=== PATIENT | female | born 1965 | race Caucasian/White ===

== ENCOUNTER 2023-12-20 05:53 | Day surgery (SDC) | payer OTHER ==
[2023-12-20] MEDS: CEFAZOLIN 2 GM/100 ML NaCl 2 GM/100 ML IVPB IV SCH (06:09)
[2023-12-20] MEDS: Lactated Ringers 1,000 ML IV SCH (06:09)
[2023-12-20 06:16] VITALS: PULSE 77; RESP 18
[2023-12-20 06:19] LABS: Hematocrit 40.7 % (34.1-44.9); Mean Cell Volume 88.7 fL (79.4-94.8); Mean Corpuscular Hemoglobin 28.3 pg (25.6-32.2); Mean Corpuscular Hgb Concent. 31.9 g/dL (32.2-35.5); Mean Platelet Volume 10.4 fL (9.4-12.3); Platelet Count 196 x10^3/uL (182-369); Red Blood Count 4.59 x10^6/uL (3.93-5.22); Red Cell Distribution Width 14.3 % (11.7-14.4)
[2023-12-20 06:28] LABS: ALBUMIN 4.6 g/dL (3.5-5.0); BILIRUBIN,TOTAL 0.5 mg/dL (0.2-1.3); Calcium 9.7 mg/dL (8.4-10.2); Creatinine 1 0.83 mg/dL (0.52-1.04); EST GLOMERULAR FILTRATION RATE 81.7 ML/MIN; Potassium 4.3 mmol/L (3.5-5.1)
[2023-12-20] MEDS ORDERED: DIPRIVAN 200 MG/20 ML IV ONE (07:01)
[2023-12-20] MEDS ORDERED: PHENYLEPHRINE HCL ONE (07:02)
[2023-12-20] MEDS ORDERED: EXPAREL 133 MG/10 ML VIAL IJ ONE (07:03)
[2023-12-20] MEDS ORDERED: Versed 2 MG/2 ML Injection ONE ×2 (07:07→07:16)
[2023-12-20] MEDS ORDERED: ROCURONIUM BROMIDE IV ONE (07:47)
[2023-12-20] MEDS ORDERED: SUBLIMAZE 100 MCG/2 ML ONE (07:47)
[2023-12-20] MEDS ORDERED: Decadron 4 MG INJ ONE (07:47)
[2023-12-20] MEDS ORDERED: Xylocaine-Mpf 2% 5 Ml Vial ONE (07:53)
[2023-12-20] MEDS ORDERED: Transderm Scop 1.5MG Patch ONE (08:20)
[2023-12-20] MEDS ORDERED: Epinephrine Preservative Free 1 MG/ML ONE (08:30)
[2023-12-20] MEDS ORDERED: Ephedrine Sulfate 50 MG/ML ONE (08:45)
[2023-12-20] MEDS ORDERED: BRIDION 200MG/2ML IV ONE (09:49)
--- NOTE | 2023-12-20 10:23 | XRAY ---
Indication: Right ankle arthroscopy with synovectomy and microfracture. Partial excision fibula. Lateral ankle stabilization. Bone biopsy tibia. Intraoperative fluoroscopy provided for 51 seconds. Numerous digital spot and cine images submitted for interpretation demonstrates metallic localizer tip lateral to talus, instrumentation lateral malleolus, and additional metallic localizer tip anterior to proximal tibia. Correlate with intraoperative findings/report.
[2023-12-20] MEDS ORDERED: Marcaine 0.5%/Epinephrine 10 ML ONE (10:42)
--- NOTE | 2023-12-20 11:01 | XRAY ---
51 seconds of fluoroscopy was used in surgery for a right ankle arthroscopy with synovectomy and microfracture. Partial excision fibula. Lateral ankle stabilization. Bone biopsy tibia.
[2023-12-20 11:15] VITALS: BP 144/78; TEMP 97.5; O2SAT 92
--- NOTE | 2023-12-22 11:45 | OP ---
SURGERY DATE/TIME: 12/20/2023 [id number] PREOPERATIVE DIAGNOSES: 1) Ankle joint effusion, right. 2) Ankle joint pain. 3) Ankle joint synovitis. 4) Osteochondral defect. 5) Lateral ankle instability. 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 7) Multiple myeloma. 8) Difficulty with ambulation. POSTOPERATIVE DIAGNOSES: 1) Ankle joint effusion, right. 2) Ankle joint pain. 3) Ankle joint synovitis. 4) Osteochondral defect. 5) Lateral ankle instability. 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 7) Multiple myeloma. 8) Difficulty with ambulation. PROCEDURE: 1) Ankle arthroscopy with synovectomy, right ankle. 2) Ankle arthroscopic microfracture osteochondral lesion, talar dome x2. 3) Excision of fibular nonunion, right ankle. 4) Lateral ankle stabilization, ATFL and CFL ligaments. 5) Bone marrow aspiration/biopsy proximal tibia, right leg. SURGEON: Dwain Chavez DPM CIRCULATION DIRECTOR: None. ANESTHESIA: General plus a preoperative popliteal and saphenous block. See anesthesia report for details. HEMOSTASIS: Thigh tourniquet set to 300 mmHg for a total of 53 total tourniquet minutes. ESTIMATED BLOOD LOSS: Approximately 5 mL. MATERIALS: A 2.9 JuggerKnot with broadband to a 2.9 Betta Link and two 1.45 JuggerKnot, 2-0 Vicryl, 3-0 nylon, 4-0 Monocryl. INJECTABLES: See anesthesia report for details. INDICATIONS: The patient is a very pleasant 58-year-old female who is known to my service for pain to the right ankle. The patient has had an extensive history of issues with this ankle as a result of an ankle inversion injury to the right ankle resulting in an avulsion of the tip of the fibula. The patient was in a CAM boot for 9 months and allowed to weight bear with a nonunion that occurred with another provider. The patient presents with continued pain at least on initial consultation. She had failed all routes of treatment from that standpoint. Given her failure with conservative treatment, she opted to go the route of surgical intervention. The patient has been made aware of all risks, complications, and benefits of surgical intervention at this time including, but not limited to, infection, hematoma, seroma, possibility of delayed wound healing, non-wound healing, possibility of continued pain, possibility of continued instability, possible need for further surgical intervention at a later date, and possible removal of painful hardware. She understands all these risks and wishes to proceed. Plenty of time was allowed for the patient to ask questions which were answered to her apparent satisfaction. No guarantees were provided as to the outcome of surgical intervention. At this time, we decided to proceed. DESCRIPTION OF PROCEDURE AND FINDINGS: The patient was brought into the postoperative anesthesia care unit prior to the procedure and provided a popliteal and saphenous block to the right lower extremity. See anesthesia report for details. At this time, the patient was then brought into the operating room and placed on the operating room table in the supine position. General anesthesia was administered until the patient was adequately sedated. A well-padded tourniquet was applied to the patient's right thigh and the tourniquet was set to 300 mmHg. At this time, the right lower extremity was then prepped and draped in the typical sterile fashion and lowered onto the surgical field. From that standpoint, attention was directed to the medial and lateral malleolus which were outlined at their palpable end points. The palpable dell between the talus and the tibia was identified, finding the midline of the ankle joint. Skin marker was utilized to draw lines corresponding to these landmarks, and an anteromedial portal was deemed appropriate just medial to the tibialis anterior tendon and anterolateral was just above this line, making sure not to damage the superficial peroneal nerve at the anterolateral aspect of the ankle joint capsule. An 18-gauge needle with a 50 mL syringe with lactated Ringer's was introduced in the anteromedial portal and insufflated the ankle with approximately 30 mL of fluid. The foot dorsiflexing relative to the ankle, knowing that we were intracapsular, an 11-blade was then utilized to make an incision to the level of skin and then a curved mini hemostat was utilized to penetrate the capsule and insufflation fluid was expressed. A blunt obturator and trocar were introduced. The obturator was then removed and the 30-degree 4.0 mm camera was then introduced. Inspection of the joint showed a significant amount of hemorrhagic and crab meat synovitis at the anterior medial and lateral aspects of the joint immediately. The lateral portal was then established utilizing an 11 blade and a curved mini hemostat, and then the 3.4 mm shaver was then introduced, debriding any synovitis that was encountered. Significant amount of constrictors was identified at the anterior aspect of the ankle joint. These were cut utilizing a cutter, and some rongeurs were utilized to remove these constrictors. The anterior aspect of the tibia was debrided utilizing a shaver. There was significant amount of constrictors. Bovie was utilized to burn the surface of these hemorrhagic areas and stop any bleeding within the joint. From that standpoint, the portals were exchanged and an extensive synovectomy was performed at the medial and lateral gutters, removing any constrictors at which the anterior aspect of the ankle joint as well as the top of the talar dome had a significant amount. From that standpoint, attention was directed to the medial talar dome where on MRI, there was approximately a 6 mm x 8 mm osteochondral defect with fairly superficial depth. This area was assessed and probed. The cartilage was very weak in this area with a delaminated section posteriorly lifting and exposing the subchondral plate. This area was then shaved utilizing a 2.7 mm shaver. A chondral pick was then utilized to microfracture the surface of the talar dome. Another area of interest was identified centrally and anteriorly. This area looks as though it had some fibrocartilaginous growth but there was some exposure of the subchondral plate centrally and decision was made to proceed with a microfracture in this location. Healthy bleeding was seen after the microfracture. From that standpoint, the shaver was then utilized to debride these areas once more until the cartilage was smooth on all surfaces. Final pictures were taken inside the joint and then the arthroscopic portion of the procedure was removed from the field. At this time, an Esmarch was utilized to exsanguinate the leg and the tourniquet was inflated to 300 mmHg. At this time, a linear incision was carried down from the tip of the anterior process of the calcaneus to the midline of the fibula. Once past the adipose layer, careful dissection was carried down utilizing a combination of dissection scissors and blunt and sharp dissection, making sure not to damage any neurovascular structures along the way. Superficial peroneal nerve was encountered and retracted out of the way dorsally. The area of the distal tip of the fibula was encountered and the nonunion was identified. The nonunion was then resected utilizing a 15-blade and a pair of rongeurs and handed off the field. The calcaneofibular ligament was tested prior to this with a talar tilt, deeming this to be inadequate, as well as an anterior drawer which demonstrated a significant amount of displacement relative to the longitudinal access of the leg on a lateral view. Decision was made to do a double ligament repair with InternalBrace. At this time, the 2.9 JuggerKnot was introduced into the lateral body at the junction of the body and the neck of the talus, making sure on AP and lateral views that the drill was not in the intraarticular space. Once drilled, the 2.9 JuggerKnot was then placed. Good hold of the suture was appreciated at this time. This was then anchored with the foot in a dorsiflexed position to the 2.9 Betta Link and the footprint of the ATFL off the distal aspect of the fibula. Periosteum was elevated at this time in order to have ligament to bone contact. From that standpoint, two 1.45 JuggerKnots were then introduced at the tip of the distal fibula for repair of the calcaneofibular ligament and then 1 just proximal to the InternalBrace where the ATFL was to be repaired. The repair took place a Brostrom-type procedure, gaining excellent apposition and shortening of the ATFL and CFL ligaments. From that standpoint, talar tilt and anterior drawer were performed once again with complete elimination of the talar tilt and significant improvement in the anterior drawer maneuver. From that standpoint, copious amounts of sterile saline were utilized to flush the surgical site, 2-0 Vicryl was utilized to repair the capsule of the ankle joint laterally and then from that standpoint a 4-0 Monocryl was utilized to coapt the subcutaneous skin edges in a simple interrupted buried-type fashion over the lateral ankle stabilization site. All other sites had horizontal mattress sutures with 3-0 nylon to coapt the skin edges in everted-type fashion. Following this, a Jamshidi needle with a trocar was utilized to perform the bone marrow aspiration at the proximal aspect of the medial tibial face within our safe zone. A stab incision was made which was carried down to the level of the medial tibial face, utilizing a curved mini hemostat. Utilizing a mallet and a Jamshidi needle, the Jamshidi needle was introduced into the bone marrow and aspiration of approximately 5 mL was obtained. This was handed off the field for pathological assessment. From that standpoint, this area was then cleansed and a 3-0 nylon was utilized to coapt the skin edges in a simple interrupted-type fashion. Following this, the tourniquet was let down. Dressings were applied consisting of Betadine, Adaptic, 4 x 4, Kerlix, and a well-padded posterior splint with sugar tong. From that standpoint, the patient was then reversed from anesthesia and returned to the postoperative anesthesia care unit with vital signs stable and vascular status intact. The patient handled the anesthesia as well as the procedure without significant complication. Postoperative orders as indicated in the patient's discharge chart.
== END 2023-12-20 11:41 | disposition home or self-care (01) ==
LOC: SDC 05:53
PROVIDERS: ATTEND Podiatrist Foot & Ankle Surgery
DX: M25.471 Effusion, right ankle (principal); M25.571 Pain in right ankle and joints of right foot; M65.871 Other synovitis and tenosynovitis, right ankle and foot; M93.271 Osteochondritis dissecans, right ankle and joints of right foot; S93.411A Sprain of calcaneofibular ligament of right ankle, initial encounter; M25.371 Other instability, right ankle; R26.2 Difficulty in walking, not elsewhere classified; S82.401A Unspecified fracture of shaft of right fibula, initial encounter for closed fracture; C90.00 Multiple myeloma not having achieved remission
CPT/HCPCS: 27641; 27698; 29892; 29898; 36415; 38221; 73610; 76000; 80053; 85027; 93005; C1713; J0171; J0690; J1100; J2250; J2371; J2704; J3010; A9270-GY

== ENCOUNTER 2024-02-26 18:54 | Emergency (ER) | payer OTHER ==
[2024-02-26 19:13] VITALS: TEMP 97.4
[2024-02-26] MEDS ORDERED: DUONEB 0.5-3 MG/3 ml Neb IH ONE (19:35)
[2024-02-26] MEDS ORDERED: PROVENTIL 2.5 MG/3 ML NEB IH ONE (19:35)
--- NOTE | 2024-02-26 19:35 | ERPHSYRPT ---
- History of Present Illness Source: patient Exam Limitations: no limitations Patient Subjective Stated Complaint: pt began having a cough on Tuesday after grandchildren had been sick and sputum has changed from clear/white to brown, pt feels short of breath Triage Nursing Assessment: Pt brought to the ER by her daughter, hypertensive, rates head pain as 8/10, pulses normal, skin n/w/d, cough, diminshed lungs with crackles Physician History: Patient's had cough for about 4 days. She has not had any fever but had chills and rigors. She has had cough which is producing sputum. She said it was brown possibly had a little bit of blood streaks in it. She had a exposure to infectious disease by her grandchildren. This was about 2 weeks ago. Most of them have all gotten better but she still feeling sick. She has a history of asthma and says that she is having some difficulty breathing. She said she gets little bit dyspneic on exertion. She is maintaining good sats and in no respiratory distress here. She does not have any chest pain. Nothing really makes his symptoms better or worse. Allergies/Adverse Reactions: amlodipine Allergy (Verified 02/26/24 19:13) aspirin [From Percodan] Allergy (Verified 02/26/24 19:13) hydralazine Allergy (Verified 02/26/24 19:13) Iodinated Contrast Media Allergy (Verified 02/26/24 19:13) metoprolol Allergy (Verified 02/26/24 19:13) naproxen [From Naprosyn] Allergy (Verified 02/26/24 19:13) ondansetron [From Zofran] Allergy (Verified 02/26/24 19:13) oxycodone [From Percodan] Allergy (Verified 02/26/24 19:13) prednisone Allergy (Verified 02/26/24 19:13) silver sulfadiazine [From Silvadene] Allergy (Verified 02/26/24 19:13) vancomycin Allergy (Verified 02/26/24 19:13) Home Medications: L.acidoph,Paracasei, B.lactis [Probiotic] 1 each PO DAILY 11/28/23 [History] Lisinopril 10 mg [Zestril 10 MG] 10 mg PO DAILY 11/28/23 [History] Multivitamin [Multi-Vitamin Daily] 1 each PO DAILY 11/28/23 [History] Nebivolol HCl 2.5 mg PO DAILY 11/28/23 [History] Acetylcysteine [Nac] 500 mg PO DAILY 12/20/23 [History] Albuterol Sulfate/Budesonide [Airsupra 90-80 Mcg Inhaler] 1 puff IH DAILY 12/20/23 [History] Potassium Chloride 20 meq PO BID 02/26/24 [History] Hx Influenza Vaccination/Date Given: No Hx Pneumococcal Vaccination/Date Given: No Travel Risk - International Travel Have you traveled outside of the country in past 3 weeks: No - Emerging Infectious Disease Are you exhibiting symptoms associated with any current EIDs: Yes Symptoms: Cough: New Onset, Shortness of Breath - Review of Systems Constitutional: Chills, Fatigue, Lethargy, Malaise Eyes: No Symptoms Ears, Nose, & Throat: No Symptoms Respiratory: Cough, Dyspnea on Exertion (GOLD), Wheezing Cardiac: No Symptoms Abdominal/Gastrointestinal: No Symptoms, No Abdominal Pain, No Nausea, No Vomiting Musculoskeletal: No Symptoms Skin: No Symptoms All Other Systems: Reviewed and Negative - Past Medical History Pertinent Past Medical History: Yes Neurological History: Other ENT History: No Pertinent History Cardiac History: Hypertension, Other Respiratory History: Asthma Endocrine Medical History: Other Musculoskeletal History: Osteoarthritis GI Medical History: GERD History: Other Psycho-Social History: No Pertinent History Female Reproductive Disorders: No Pertinent History Other Medical History: KIDNEY STONES. SUPRAVENTRICULAR TACHYCARDIA WITH ANGINA, CARDIAC ABLATION. - Past Surgical History Past Surgical History: Yes Neuro Surgical History: No Pertinent History Cardiac: Other Respiratory: No Pertinent History Gastrointestinal: Cholecystectomy Genitourinary: No Pertinent History Musculoskeletal: Other Female Surgical History: Hysterectomy, Other Other Surgical History: bilateral breast surgery, hand surgery, bilateral foot surgery,sinus, lymph nodes removed from right groin and abcess developed-2023 - Social History Smoking Status: Former smoker Exposure to second hand smoke: No Drug Use: none - Social Determinants of Health Will the patient participate in the screening: Yes Do you worry about a steady place to live?: No Do you have any problems with any of the following?: No known problems In the past 12 months,have you had to go without utilities?: No Transportation Issues: No Has anyone in your support network made you feel unsafe?: No Have you or anyone in your house had to go without enough: No - Nursing Vital Signs Nursing Vital Signs: Initial Vital Signs Temperature 97.4 F 02/26/24 19:03 Pulse Rate 84 02/26/24 19:03 Blood Pressure 169/103 02/26/24 19:03 O2 Sat by Pulse Oximetry 98 02/26/24 19:03 Pain Scale Pain Intensity 8 - Physical Exam General Appearance: no apparent distress Eye Exam: PERRL/EOMI Neck Exam: normal inspection Respiratory Exam: diminished breath sounds, prolonged expirations, wheezing, No chest tenderness, No lungs clear, No respiratory distress, No accessory muscle use Cardiovascular Exam: regular rate/rhythm, normal heart sounds Back Exam: normal inspection Extremity Exam: normal inspection, normal range of motion, No pelvis stable, No amputations Neurologic Exam: alert, oriented x 3 SpO2: 98 - Course Nursing assessment & vital signs reviewed: Yes Ordered Tests: Active Orders 24 hr Category Date Time Status CHEST 1 VIEW (PORTABLE) Stat Exams 02/26/24 19:19 Taken CBC W DIFF Stat Lab 02/26/24 19:49 Completed CMP Stat Lab 02/26/24 19:49 Completed Respiratory Therapy Assessment DAILY RT 02/26/24 19:44 Active Medication Summary Discontinued Medications Generic Name Dose Route Start Last Admin Trade Name Freq PRN Reason Stop Dose Admin Albuterol Sulfate 2.5 mg 02/26/24 19:31 02/26/24 19:43 Albuterol Sulfate 2.5 Mg/3 Ml Neb IH 02/26/24 19:32 2.5 mg STAT ONE Administration Albuterol Sulfate Confirm 02/26/24 19:35 Albuterol Sulfate 2.5 Mg/3 Ml Neb Administered 02/26/24 19:36 Dose 2.5 mg IH .STK-MED ONE Albuterol/Ipratropium 3 ml 02/26/24 19:32 02/26/24 19:43 Ipratropium/Albuterol Sulfate 3 Ml Ampul.Neb IH 02/26/24 19:33 3 ml STAT ONE Administration Albuterol/Ipratropium Confirm 02/26/24 19:35 Ipratropium/Albuterol Sulfate 3 Ml Ampul.Neb Administered 02/26/24 19:36 Dose 3 ml IH .STK-MED ONE Patient improved fairly dramatically with her albuterol treatments. Her chest x-ray showed a right infiltrate. I went to go ahead and treat her for pneumonia. Lab/Rad Data: Laboratory Result Diagrams 02/26/24 19:49 02/26/24 19:49 Laboratory Results 02/26/24 02/26/24 02/26/24 Range/Units 19:49 19:49 19:35 WBC 4.1 (3.98-10.04) x10^3/uL RBC 3.96 (3.93-5.22) x10^6/uL Hgb 11.4 (11.2-15.7) g/dL Hct 34.7 (34.1-44.9) % MCV 87.6 (79.4-94.8) fL MCH 28.8 (25.6-32.2) pg MCHC 32.9 (32.2-35.5) g/dL RDW 13.8 (11.7-14.4) % Plt Count 123 L (182-369) x10^3/uL MPV 9.7 (9.4-12.3) fL Gran % 72.2 H (34.0-71.1) % Immature Gran % (Auto) 0.2 (0.001-0.429) % Nucleat RBC Rel Count 0.0 (0.00-0.2) % Eos # (Auto) 0.10 (0.04-0.36) x10^3/uL Immature Gran # (Auto) 0.01 (0.001-0.031) x10^3u/L Absolute Lymphs (auto) 0.65 L (1.18-3.74) x10^3/uL Absolute Monos (auto) 0.36 (0.24-0.86) x10^3/uL Absolute Nucleated RBC 0.00 (0.00-0.012) x10^3u/L Lymphocytes % 16.0 L (19.3-51.7) % Monocytes % 8.9 (4.7-12.5) % Eosinophils % 2.5 (0.7-5.8) % Basophils % 0.2 (0.1-1.2) % Absolute Granulocytes 2.93 (1.56-6.13) x10^3/uL Basophils # 0.01 (0.01-0.08) x10^3/uL Sodium 142 (135-145) mmol/L Potassium 3.6 (3.5-5.1) mmol/L Chloride 109 H (98-107) mmol/L Carbon Dioxide 25 (22-30) mmol/L Anion Gap 12.0 (5-15) MEQ/L BUN 14 (7-17) mg/dL Creatinine 0.88 (0.52-1.04) mg/dL Estimated GFR 76.1 ML/MIN Glucose 107 H (74-106) mg/dL Calcium 9.2 (8.4-10.2) mg/dL Total Bilirubin 0.30 (0.2-1.3) mg/dL AST 33 (14-36) U/L ALT 36 H (0-35) U/L Alkaline Phosphatase 103 (38-126) U/L Serum Total Protein 7.1 (6.3-8.2) g/dL Albumin 4.1 (3.5-5.0) g/dL Influenza Type A Ag NEGATIVE (NEGATIVE) Influenza Type B Ag NEGATIVE (NEGATIVE) RSV (PCR) NEGATIVE (NEGATIVE) SARS-CoV-2 (PCR) NEGATIVE (NEGATIVE) X-ray was interpreted by me. It looks like she has a right lung infiltrate. She was stable throughout stay. - Progress Progress: improved, re-examined Air Movement: good Progress Note: On the differential was pneumonia, COVID, flu, RSV, pleurisy. Her lab work all look good. Her x-ray was interpreted by me. It showed an infiltrate on the right lung. I think she may have pneumonia starting up. She clinically had symptoms of a pneumonia. She has multiple allergies to antibiotics. She says that Levaquin usually works for them so that is what we will use. I would give her some Tessalon Perles as well 2. She is discharged home in stable condition. She is to follow-up with primary care doctor and return if symptoms worsen 02/26/24 20:53 Antibiotics given: Yes Medical Desision Making - Social Determinants of Health Pt's dx & treatment plan are significantly limited by SDOH: limited education - Diagnostic Testing Diagnostic test were ordered, analyzed, and reviewed by me: Yes Radiological Interpretation: Interpreted by me - Risk of complications Minimal Risk: Minimal risk of morbidity - Departure Departure Disposition: Home Clinical Impression: Pneumonia Condition: Stable Critical Care Time: No Referrals: WILFREDO ROCHA MD [Primary Care Provider] - Follow up/PCP as directed Instructions: Pneumonia in adults
[2024-02-26] MEDS: DUONEB 0.5-3 MG/3 ml Neb IH ONE (19:43)
[2024-02-26] MEDS: PROVENTIL 2.5 MG/3 ML NEB IH ONE (19:43)
[2024-02-26 19:50] LABS: Absolute Neutrophil Ct (ANC) 2.93 x10^3/uL (1.56-6.13); BASOPHIL % 0.2 % (0.1-1.2); Basophil (Absolute #) 0.01 x10^3/uL (0.01-0.08); Eosinophil % 2.5 % (0.7-5.8); Hematocrit 34.7 % (34.1-44.9); Hemoglobin 11.4 g/dL (11.2-15.7); IMMATURE GRAN # 0.01 x10^3u/L (0.001-0.031); IMMATURE GRAN % 0.2 % (0.001-0.429); Lymphocyte (Absolute #) 0.65 x10^3/uL (1.18-3.74); Mean Cell Volume 87.6 fL (79.4-94.8); Mean Corpuscular Hemoglobin 28.8 pg (25.6-32.2); Mean Corpuscular Hgb Concent. 32.9 g/dL (32.2-35.5); Mean Platelet Volume 9.7 fL (9.4-12.3); Monocyte (Absolute #) 0.36 x10^3/uL (0.24-0.86); Monocytes % 8.9 % (4.7-12.5); Neutrophil % 72.2 % (34.0-71.1); Platelet Count 123 x10^3/uL (182-369); Red Blood Count 3.96 x10^6/uL (3.93-5.22); Red Cell Distribution Width 13.8 % (11.7-14.4); White Blood Count 4.1 x10^3/uL (3.98-10.04)
[2024-02-26 20:04] LABS: ALBUMIN 4.1 g/dL (3.5-5.0); BILIRUBIN,TOTAL 0.3 mg/dL (0.2-1.3); Calcium 9.2 mg/dL (8.4-10.2); Creatinine 1 0.88 mg/dL (0.52-1.04); EST GLOMERULAR FILTRATION RATE 76.1 ML/MIN; Potassium 3.6 mmol/L (3.5-5.1); Total Protein 7.1 g/dL (6.3-8.2)
[2024-02-26 20:06] VITALS: BP 157/110; PULSE 80; RESP 19
[2024-02-26 20:42] LABS: INFLUENZA A NEGATIVE (NEGATIVE); INFLUENZA B NEGATIVE (NEGATIVE); RESPIRATORY SYNCTIAL VIRUS NEGATIVE (NEGATIVE); SARS-CoV-2 Xpert Express NEGATIVE (NEGATIVE)
[2024-02-26] MEDS ORDERED: Tessalon Perles 100 MG PO PRN (20:57)
[2024-02-26 20:59] VITALS: O2SAT 98
[2024-02-26] MEDS ORDERED: Levofloxacin 250MG Tablet ONE (21:03)
[2024-02-26] MEDS ORDERED: Tessalon Perles 100 MG PO ONE (21:03)
[2024-02-26] MEDS: Levofloxacin 250MG Tablet PO ONE (21:06)
--- NOTE | 2024-02-27 08:37 | XRAY ---
Indication: Pneumonia. Comparison: May 25, 2023 Portable chest demonstrates new patchy right base airspace disease without consolidation/large effusion. Remaining heart and left lung unremarkable. Bony thorax intact again with mild degenerative changes.
== END 2024-02-26 21:21 | disposition home or self-care (01) ==
LOC: ED 18:54
DX: J18.9 Pneumonia, unspecified organism (principal); R05.9 Cough, unspecified; R06.02 Shortness of breath; Z79.899 Other long term (current) drug therapy
CPT/HCPCS: 0241U; 36415; 71045; 80053; 85025; 94640; 99283; J7609; A9270-GY